=== PATIENT | male | born 1950 | race Caucasian/White ===

== ENCOUNTER → 2017-08-30 | Outpatient (CLI) | payer MEDICARE ==
[~2017-08-30] MED LIST: ALLO300T PO; CARV3.1212 PO; DABI150C PO; DIGO250T PO; FURO-92 PO; HYDR-3240 PO; LISI5TAB7 PO; REGADENOSON 0.4 MG/5 ML SYRINGE ONE; SIMV20TA3 PO; SPIR25TA3 PO
== END | disposition home or self-care (01) ==
LOC: CFH 08:01
PROVIDERS: ATTEND Internal Medicine Cardiovascular Disease
DX: I49.3 Ventricular premature depolarization (principal); I48.2 Chronic atrial fibrillation; I10 Essential (primary) hypertension
CPT/HCPCS: 78452; 93017; A9502; J2785

== ENCOUNTER → 2018-02-10 | Outpatient (CLI) | payer MEDICARE ==
[~2018-02-10] MED LIST changes: -REGADENOSON 0.4 MG/5 ML SYRINGE ONE
== END | disposition home or self-care (01) ==
LOC: CFH 10:03
PROVIDERS: ATTEND Internal Medicine Cardiovascular Disease
DX: I08.0 Rheumatic disorders of both mitral and aortic valves (principal); I10 Essential (primary) hypertension; I42.9 Cardiomyopathy, unspecified; E78.5 Hyperlipidemia, unspecified
CPT/HCPCS: 93306

== ENCOUNTER → 2018-07-18 | Outpatient (CLI) | payer MEDICARE ==
[~2018-07-18] MED LIST changes: -SPIR25TA3 PO; +SPIR25TA5 PO
== END | disposition home or self-care (01) ==
LOC: RAD 17:54
PROVIDERS: ATTEND Nurse Practitioner Family
DX: I86.8 Varicose veins of other specified sites (principal); M79.81 Nontraumatic hematoma of soft tissue; M79.605 Pain in left leg
CPT/HCPCS: 93970

== ENCOUNTER → 2018-09-19 | Outpatient (CLI) | payer MEDICARE | END | disposition home or self-care (01) | LOC: CVU 07:27 | PROVIDERS: ATTEND Surgery Vascular Surgery | DX: M79.89 Other specified soft tissue disorders (principal); L97.909 Non-pressure chronic ulcer of unspecified part of unspecified lower leg with unspecified severity; I50.9 Heart failure, unspecified; Z79.899 Other long term (current) drug therapy; Z72.89 Other problems related to lifestyle; Z87.891 Personal history of nicotine dependence | CPT/HCPCS: 93970 ==

== ENCOUNTER 2019-03-23 09:10 | Emergency (ER) | payer MEDICARE ==
[~2019-03-23] VITALS: Ht 172.7 cm; Wt 110.5 kg
== END 2019-03-23 11:26 | disposition home or self-care (01) ==
LOC: ED 11:15
DX: S52.502A Unspecified fracture of the lower end of left radius, initial encounter for closed fracture (principal); I48.91 Unspecified atrial fibrillation; E78.00 Pure hypercholesterolemia, unspecified; I11.0 Hypertensive heart disease with heart failure; I50.9 Heart failure, unspecified; W23.0XXA Caught, crushed, jammed, or pinched between moving objects, initial encounter; Y93.89 Activity, other specified; Y92.009 Unspecified place in unspecified non-institutional (private) residence as the place of occurrence of the external cause; Y99.8 Other external cause status
CPT/HCPCS: 29125; 99283

== ENCOUNTER 2019-06-15 13:57 | Outpatient (CLI) | payer MEDICARE ==
[~2019-06-15 13:57] MED LIST changes: +ATOR-2 PO
== END 2019-06-15 23:59 | disposition home or self-care (01) ==
LOC: CFH 13:57
PROVIDERS: ATTEND Registered Nurse
DX: I08.1 Rheumatic disorders of both mitral and tricuspid valves (principal); I42.9 Cardiomyopathy, unspecified; I10 Essential (primary) hypertension; E78.5 Hyperlipidemia, unspecified; I50.9 Heart failure, unspecified; Z87.891 Personal history of nicotine dependence; Z88.8 Allergy status to other drugs, medicaments and biological substances
CPT/HCPCS: 93306

== ENCOUNTER → 2020-09-07 | Outpatient (CLI) | payer MEDICARE ==
[~2020-09-07] MED LIST changes: -DIGO250T PO; +DIGO250T3 PO; +HYDR-1067 PO; -HYDR-3240 PO; +SIMV20TA19 PO; -SIMV20TA3 PO
== END | disposition home or self-care (01) ==
LOC: CVU 07:10
PROVIDERS: ATTEND Registered Nurse
DX: I08.8 Other rheumatic multiple valve diseases (principal); I48.20 Chronic atrial fibrillation, unspecified; I10 Essential (primary) hypertension
CPT/HCPCS: 93306